=== PATIENT | female | born 1980 | race Caucasian/White ===

== ENCOUNTER 2021-02-16 10:17 | Outpatient (CLI) | payer OTHER, SELFPAY ==
[2021-02-16 11:32] LABS: Erythrocyte Sedimentation Rate 36 mm/hr (0-15)
[2021-02-16 12:04] LABS: Rheumatoid Factor Screen Negative (Negative)
[2021-02-16 12:08] LABS: CRP 1.5 mg/dL (0.0-0.9)
[2021-02-20 13:43] LABS: HLA B27 Negative (Negative)
== END 2021-02-16 10:18 | disposition home or self-care (01) ==
LOC: CHSLAB 10:20
PROVIDERS: PCP Family Medicine; Visit Provider Podiatrist Foot & Ankle Surgery
DX: M25.572 Pain in left ankle and joints of left foot (principal)
CPT/HCPCS: 36415; 84550; 85652; 86038; 86039; 86140; 86430; 86812

== ENCOUNTER 2021-02-18 11:50 | Outpatient (CLI) | payer OTHER, SELFPAY ==
--- NOTE | ~2021-02-18 | US_ITS ---
EXAMINATION: US arterial duplex LE DATE: 02/18/2021 13:47 INDICATION: Bilateral lower limb peripheral vascular disease. TECHNIQUE: Segmental pressures and plethysmographic and Doppler waveforms of the brachial and lower e xtremity arteries were obtained. COMPARISON: None. FINDINGS: Right and left brachial artery pressures of 160 mm Hg and 150 mm Hg, respectively, are concordant (no rmal difference <= 30 mmHg). The right and left high-thigh pressure indices are 1.28 and 1.28, respec tively (normal > 1.2). The right ankle-brachial index (JESÚS) is 1.0 (normal >= 0.9-1). The right great toe-brachial index (TB I) is 1.0 (normal >= 0.6-0.8). The right lower extremity segmental pressure gradients are normal (nor mal gradients <= 20-30 mmHg between adjacent levels on the same leg or the same levels on the two leg s). Arterial waveforms are monophasic at the right dorsalis pedis artery biphasic in the remaining ar teries of the left lower limb with brisk systolic upstrokes throughout. The left JESÚS is 1.1. The left second TBI is 0.8. The left great toe is unable to be accessed due to b andaging material about the great toe between ingrown toenail and blisters. The left lower extremity segmental pressure gradients are increased between the left dorsalis pedis artery and the left below- the-knee popliteal artery and left posterior tibial artery. Arterial waveforms are monophasic at the left dorsalis pedis artery and biphasic in the remaining arteries of the left lower limb with brisk s ystolic upstrokes throughout. IMPRESSION: 1. Normal JESÚS's and TBI's bilaterally. No significant occlusive disease. Reviewed, dictated and finalized at location A.
== END 2021-02-18 11:51 | disposition home or self-care (01) ==
LOC: CHSIMG 11:52
PROVIDERS: PCP Family Medicine; Visit Provider Podiatrist Foot & Ankle Surgery
DX: I73.9 Peripheral vascular disease, unspecified (principal)
CPT/HCPCS: 93925

== ENCOUNTER 2021-03-03 08:04 | Emergency (ER) | payer OTHER, SELFPAY ==
[2021-03-03 08:10] VITALS: BP 148/90; PULSE 124; RESP 20; TEMP 37.8; O2SAT 97
--- NOTE | 2021-03-03 08:47 | ED.FEVER ---
HPI - Fever General Chief Complaint: Fever Stated Complaint: FEVER ACHES Time Seen by Provider: 03/03/21 08:30 Source: patient Mode of arrival: ambulatory Limitations: no limitations History of Present Illness HPI Narrative: 40-year-old woman comes in today complaining of fever, body aches, fatigue for the last 3 days. She states the last time she checked her temperature is a 101.5?. Approximately 1 month ago she had a toenail reduction which subsequently became infected and she was placed on Septra after culture. She states her toe is painful and she is having a small amount of drainage. Patient denies dysuria, frequent urination, abdominal pain, nausea, vomiting, cough or cold symptoms, sore throat, recent sick exposures, chest pain, shortness of breath, or rash. MD elicited complaint: fever and malaise Onset (ago): day(s) (3) Measured temperature: 38.6 C Context: recent procedure Exacerbating factors: nothing Relieving factors: nothing Related Data Home Medications Medication Instructions Recorded Confirmed amlodipine 5 mg PO DAILY 03/03/21 03/03/21 sulfamethoxazole-trimethoprim 1 tablet PO BID 03/03/21 03/03/21 Allergies Allergy/AdvReac Type Severity Reaction Status Date / Time hydrocodone AdvReac Mild Nausea and Verified 09/12/18 12:35 Vomiting propoxyphene AdvReac Mild Nausea and Verified 09/12/18 12:35 Vomiting Review of Systems Constitutional: Constitutional: Reports fatigue and Reports fever(s) Eyes: Eyes: Denies change in vision and Denies photophobia ENT: Denies dysphagia, Denies nasal congestion and Denies sore throat Cardiovascular: Cardiovascular: Denies chest pain and Denies radiating jaw, neck or arm pain Respiratory: Respiratory: Denies cough, Denies dyspnea and Denies wheezing Gastrointestinal: Gastrointestinal: Denies abdominal pain, Denies diarrhea, Denies nausea and Denies vomiting Genitourinary: Genitourinary: Denies nocturia and Denies dysuria Musculoskeletal: Musculoskeletal: Reports as per HPI, Reports arthralgias and Denies joint swelling Integumentary/Breasts: Skin/Breast: Denies pruritus, Reports erythema and Denies rash Neurologic: Denies vertigo, Reports dizziness and Denies syncope Hematologic/Lymphatic: Hematologic/Lymphatic: Denies easy bleeding and Denies easy bruising Allergic/Immunologic: Allergic/Immunologic: Denies lip swelling and Denies throat swelling [facility] Past Medical History Medical History (Updated 03/03/21 @ 10:40 by Rafael Akins MD) Raynauds disease Social History Social History (Updated 03/03/21 @ 08:59 by Rafael Akins MD) Smoking status: Current every day smoker Substance use: never Living arrangements: with family Exam Const: General: healthy appearing and alert Orientation/consciousness: patient oriented x3 Other: Mild acute distress HENMT: Head: normal to inspection Ears: external ears normal, TM's normal bilaterally and EAC's normal General nose exam: Normal nares present Face and sinus: normal facial exam Mouth: Yes moist mucous membranes Throat: posterior oropharynx normal Eyes: Conjunctivae: conjunctivae normal Pupils: Equal, round and reactive pupils present EOM: EOMs intact bilaterally Resp: Effort & Inspection: normal respiratory effort and not labored Auscultation: clear to auscultation bilaterally, no rales, no rhonchi and no wheezes Cardio: Rate: regular rate Rhythm: regular rhythm Heart sounds: no murmurs Skin: General skin exam: normal color, no jaundice and no pallor Rashes: no rashes Neuro: General: patient oriented x3, moves all extremities, no focal motor deficits and CN's II-XI intact bilaterally Speech: normal speech Gait exam (Neuro): Normal gait present Extrem: General: normal to inspection and no clubbing, cyanosis or edema Other: Tenderness with palpation of the right great toe nail plate. Fibrinous material evident over approx 1/2 of the exposed nail bed without tendernes
[2021-03-03] MEDS: IBUPROFEN 600 MG TABLET PO (08:58)
[2021-03-03 09:18] VITALS: BP 138/76; PULSE 116; RESP 16; O2SAT 98
[2021-03-03 09:35] LABS: SARS-CoV-2 RNA PCR Negative (Negative)
[2021-03-03 10:05] LABS: Hematocrit 39.4 % (35.0-49.0); Hemoglobin 13.5 g/dL (12.0-15.0); Mean Corpuscular HGB Conc 34.3 g/dL (32.0-36.0); Mean Corpuscular Hemoglobin 30.1 pg (27.0-31.0); Mean Corpuscular Volume 87.9 fL (78.0-102.0); Mean Platelet Volume 9.4 fl (9.2-11.8); Platelet Count Result 123 K/mm3 (150-420); Red Blood Count 4.48 M/mm3 (4.20-5.40); Red Cell Distribution Width 12.7 % (11.6-14.4); White Blood Count 3.1 K/mm3 (4.8-10.8)
[2021-03-03 10:09] LABS: Appearance Urine Sl Cloudy (Clear); Bilirubin Urine 1+ (Negative); Color Urine Yellow (Yellow); Glucose Urine UA Negative (Negative); Ketones Urine 1+ (Negative); Leukocyte Esterase Ur Negative (Negative); Nitrate Urine Negative (Negative); Protein Urine 2+ (Negative); Specific Grav Ur >= 1.030 (1.010-1.020)
[2021-03-03 10:16] LABS: Add Urine Microscopic? YES; Blood Urine Trace-Intact (Negative)
[2021-03-03 10:17] LABS: Bacteria Urine 4+ /hpf; Squamous Epithelial Cell Urine Many /hpf (Few); WBC Urine 0-3 /hpf (0-3)
[2021-03-03 10:21] LABS: Alanine Aminotransferase 26 U/L (14-59); Albumin Level 3.3 g/dL (3.4-5.0); Alkaline Phosphatase 54 U/L (46-116); Anion Gap 11 mmol/L (8-16); Aspartate Amino Transferase 19 U/L (15-37); Bilirubin,Total 0.4 mg/dL (0.00-1.00); Blood Urea Nitrogen 21 mg/dL (7-18); CRP 10.7 mg/dL (0.0-0.9); Calcium 8.4 mg/dL (8.5-10.1); Carbon Dioxide 24 mmol/L (21-32); Chloride 99 mmol/L (98-108); Estimated Glomerular Filt Rate 46; Glucose 88 mg/dL (70-99); Osmolality Calculated 280 mOsm/kg (285-295); Potassium 3.6 mmol/L (3.5-5.1); Sodium 134 mmol/L (136-145); Total Protein 7.4 g/dL (6.4-8.2)
[2021-03-03 10:24] LABS: Lactic Acid Reflex 0.8 mmol/L (0.4-2.0)
[2021-03-03 10:33] LABS: Band Neutrophils Percent 4 % (0-6); Basophils Percent Manual 0 % (0-1); Eosinophils Absolute Manual 0.15 K/mm3 (0.02-0.5); Eosinophils Percent Manual 5 % (1-6); Lymphocytes Absolute Manual 0.21 K/mm3 (1.1-4.5); Lymphocytes Percent Manual 7 % (18-44); Monocytes Absolute Manual 0.21 K/mm3 (0.1-0.90); Monocytes Percent Manual 7 % (3-9); Neutrophils Absolute Manual 2.51 K/mm3 (1.7-7.2); Neutrophils Percent Manual 77 % (46-73); Platelet Estimate Adequate (Adequate); Total Cells Counted 100
[2021-03-03 10:47] VITALS: RESP 17
== END 2021-03-03 10:48 | disposition home or self-care (01) ==
PROVIDERS: Emergency Provider Emergency Medicine; PCP Family Medicine
DX: E86.0 Dehydration (principal); R50.9 Fever, unspecified; Z20.822 Contact with and (suspected) exposure to COVID-19
CPT/HCPCS: 36415; 80053; 81001; 83605; 85025; 86140; 87040; 87086; 99283; A9270; C9803; U0003; U0005

== ENCOUNTER 2021-04-28 10:40 | Outpatient (CLI) | payer OTHER, SELFPAY ==
[2021-04-28 12:07] LABS: Alanine Aminotransferase 28 U/L (14-59); Albumin Level 3.6 g/dL (3.4-5.0); Alkaline Phosphatase 51 U/L (46-116); Aspartate Amino Transferase 27 U/L (15-37); Bilirubin Direct 0.1 mg/dL (0-0.2); Bilirubin,Total 0.4 mg/dL (0.00-1.00); Total Protein 7.3 g/dL (6.4-8.2)
== END 2021-04-28 10:41 | disposition home or self-care (01) ==
LOC: CHSLAB 10:43
PROVIDERS: PCP Family Medicine; Visit Provider Podiatrist Foot & Ankle Surgery
DX: B35.1 Tinea unguium (principal)
CPT/HCPCS: 36415; 80076

== ENCOUNTER 2021-08-19 08:30 | Outpatient (RCR) | payer OTHER, SELFPAY ==
[2021-08-19 09:06] LABS: Basophils Absolute Auto 0.05 K/mm3 (0.00-0.10); Basophils Percent Auto 0.7 % (0.0-1.0); Eosinophils Absolute Auto 0.12 K/mm3 (0.02-0.50); Eosinophils Percent Auto 1.6 % (1.0-6.0); Hematocrit 39.9 % (35.0-49.0); Hemoglobin 13.5 g/dL (12.0-15.0); Immature Granulocyte Absolute 0.02 K/mm3 (0.00-0.00); Immature Granulocyte Percent A 0.3 % (0.0-0.0); Lymphocytes Absolute Auto 1.35 K/mm3 (1.10-4.50); Lymphocytes Percent Auto 18.5 % (18.0-42.0); Mean Corpuscular HGB Conc 33.8 g/dL (32.0-36.0); Mean Corpuscular Hemoglobin 29.7 pg (27.0-31.0); Mean Corpuscular Volume 87.7 fL (78.0-102.0); Mean Platelet Volume 9.1 fl (9.2-11.8); Monocytes Absolute Auto 0.33 K/mm3 (0.10-0.90); Monocytes Percent Auto 4.5 % (2.0-11.0); Neutrophils Absolute Auto 5.4 K/mm3 (1.7-7.2); Neutrophils Percent Auto 74.4 % (50.0-70.0); Platelet Count Result 218 K/mm3 (150-420); Red Blood Count 4.55 M/mm3 (4.20-5.40); Red Cell Distribution Width 11.8 % (11.6-14.4); White Blood Count 7.3 K/mm3 (4.8-10.8)
--- NOTE | 2021-08-19 09:19 | PC.NURSE ---
Patient here today for Picc line dressing change. Single lumen Picc line in right upper arm. No s/s of infection. No bruising noted. Patient brought in all supplies for the dressing change and flushes. Flushed PICC line with 10cc NS. Line flushes with ease. Withdrew 10cc of blood to dispose of. Then robb 10cc blood for lab sample. Line then flushed with 10cc NS and 5cc Heparin. Removed old Picc line dressing. Using sterile technique new dressing applied. Patient tolerated well. Denies any discomfort. Education provide to patient on s/s of infection and when to call MD. Patient verbalized understanding. Patient safely ambulated independently from OP treatment room. --Angela Ceja RN
[2021-08-19 09:22] LABS: Anion Gap 10 mmol/L (8-16); Blood Urea Nitrogen 14 mg/dL (7-18); Calcium 8.5 mg/dL (8.5-10.1); Carbon Dioxide 28 mmol/L (21-32); Chloride 103 mmol/L (98-108); Estimated Glomerular Filt Rate 55; Glucose 93 mg/dL (70-99); Osmolality Calculated 292 mOsm/kg (285-295); Potassium 4.1 mmol/L (3.5-5.1); Sodium 141 mmol/L (136-145)
[2021-08-19 10:08] LABS: Erythrocyte Sedimentation Rate 34 mm/hr (0-15)
== END 2021-11-17 23:59 | disposition home or self-care (01) ==
LOC: CHSLAB 08:30
PROVIDERS: PCP Family Medicine; Visit Provider Internal Medicine Infectious Disease
DX: M86.172 Other acute osteomyelitis, left ankle and foot (principal)
CPT/HCPCS: 36415; 80048; 85025; 85652

== ENCOUNTER 2021-08-26 08:41 | Outpatient (CLI) | payer OTHER, SELFPAY ==
--- NOTE | 2021-08-26 09:31 | PC.NURSE ---
Patient here today for PICC line dressing change and labwork. Flushed PICC line with 10 cc NS. Then pulled 10cc of discard sample. Obtained 10cc blood for labwork. Flushed Picc line with 10cc NS and 5 cc Heparin. PICC line flushes with ease. Patient denies any discomfort. Assessed Picc line, No s/s of infection noted. Educated patient on s/s of infection and when to call her PCP. PICC line dressing changed using sterile technique. Patient tolerated well. Patient safely ambulated from OP treatment room. Patient will follow up next week for PICC line dressing change. Patient provided all supplies and flushes. --Angela Ceja RN
[2021-08-26 09:46] LABS: Basophils Absolute Auto 0.05 K/mm3 (0.00-0.10); Basophils Percent Auto 0.8 % (0.0-1.0); Eosinophils Absolute Auto 0.13 K/mm3 (0.02-0.50); Hematocrit 38.8 % (35.0-49.0); Hemoglobin 13.2 g/dL (12.0-15.0); Immature Granulocyte Absolute 0.02 K/mm3 (0.00-0.00); Immature Granulocyte Percent A 0.3 % (0.0-0.0); Lymphocytes Absolute Auto 1.32 K/mm3 (1.10-4.50); Lymphocytes Percent Auto 20.7 % (18.0-42.0); Mean Corpuscular Hemoglobin 29.7 pg (27.0-31.0); Mean Corpuscular Volume 87.2 fL (78.0-102.0); Mean Platelet Volume 10.1 fl (9.2-11.8); Monocytes Absolute Auto 0.33 K/mm3 (0.10-0.90); Monocytes Percent Auto 5.2 % (2.0-11.0); Neutrophils Absolute Auto 4.5 K/mm3 (1.7-7.2); Platelet Count Result 206 K/mm3 (150-420); Red Blood Count 4.45 M/mm3 (4.20-5.40); Red Cell Distribution Width 11.5 % (11.6-14.4); White Blood Count 6.4 K/mm3 (4.8-10.8)
[2021-08-26 09:56] LABS: Anion Gap 9 mmol/L (8-16); Blood Urea Nitrogen 17 mg/dL (7-18); Calcium 8.4 mg/dL (8.5-10.1); Carbon Dioxide 27 mmol/L (21-32); Chloride 105 mmol/L (98-108); Estimated Glomerular Filt Rate 58; Glucose 95 mg/dL (70-99); Osmolality Calculated 293 mOsm/kg (285-295); Sodium 141 mmol/L (136-145)
[2021-08-26 10:49] LABS: Erythrocyte Sedimentation Rate 33 mm/hr (0-15)
== END 2021-08-26 08:42 | disposition home or self-care (01) ==
LOC: CHSTREATRM 08:45
PROVIDERS: PCP Family Medicine; Visit Provider Internal Medicine Infectious Disease
DX: M86.172 Other acute osteomyelitis, left ankle and foot (principal)
CPT/HCPCS: 36415; 80048; 85025; 85652; 99211; G0463

== ENCOUNTER 2021-09-02 08:41 | Outpatient (CLI) | payer OTHER, SELFPAY ==
--- NOTE | 2021-09-02 09:19 | PC.NURSE ---
Patient here today for PICC line dressing change and labwork. PICC line flushes with ease, flushed with 10cc NS. 10cc of blood drawn and discarded. 10cc blood sample obtained. Flushed PICC line with 10cc NS and 5cc Heparin flush. Patient tolerated well. PICC line dressing change performed using sterile technique. Patient tolerated well. Assessed PICC line for s/s of infection, No s/s of infection noted. Educated patient on s/s of infection and when to call the physician. Patient brought in all supplies used today. Patient safely ambulated from the OP treatment room. --Angela Ceja RN
[2021-09-02 09:23] LABS: Basophils Absolute Auto 0.06 K/mm3 (0.00-0.10); Eosinophils Absolute Auto 0.13 K/mm3 (0.02-0.50); Eosinophils Percent Auto 2.1 % (1.0-6.0); Hematocrit 38.7 % (35.0-49.0); Hemoglobin 13.2 g/dL (12.0-15.0); Immature Granulocyte Absolute 0.02 K/mm3 (0.00-0.00); Immature Granulocyte Percent A 0.3 % (0.0-0.0); Lymphocytes Percent Auto 20.6 % (18.0-42.0); Mean Corpuscular HGB Conc 34.1 g/dL (32.0-36.0); Mean Corpuscular Hemoglobin 29.8 pg (27.0-31.0); Mean Corpuscular Volume 87.4 fL (78.0-102.0); Mean Platelet Volume 9.4 fl (9.2-11.8); Monocytes Absolute Auto 0.32 K/mm3 (0.10-0.90); Monocytes Percent Auto 5.1 % (2.0-11.0); Neutrophils Absolute Auto 4.5 K/mm3 (1.7-7.2); Neutrophils Percent Auto 70.9 % (50.0-70.0); Platelet Count Result 214 K/mm3 (150-420); Red Blood Count 4.43 M/mm3 (4.20-5.40); Red Cell Distribution Width 11.2 % (11.6-14.4); White Blood Count 6.3 K/mm3 (4.8-10.8)
[2021-09-02 09:37] LABS: Anion Gap 10 mmol/L (8-16); Blood Urea Nitrogen 18 mg/dL (7-18); Calcium 8.9 mg/dL (8.5-10.1); Carbon Dioxide 24 mmol/L (21-32); Chloride 103 mmol/L (98-108); Estimated Glomerular Filt Rate 54; Glucose 101 mg/dL (70-99); Osmolality Calculated 285 mOsm/kg (285-295); Potassium 3.9 mmol/L (3.5-5.1); Sodium 137 mmol/L (136-145)
[2021-09-02 10:27] LABS: Erythrocyte Sedimentation Rate 32 mm/hr (0-15)
== END 2021-09-02 08:42 | disposition home or self-care (01) ==
LOC: CHSTREATRM 08:44
PROVIDERS: PCP Family Medicine; Visit Provider Internal Medicine Infectious Disease
DX: M86.172 Other acute osteomyelitis, left ankle and foot (principal)
CPT/HCPCS: 36415; 80048; 85025; 85652; 99211; G0463

== ENCOUNTER 2021-09-09 08:46 | Outpatient (CLI) | payer OTHER, SELFPAY ==
--- NOTE | 2021-09-09 09:16 | PC.NURSE ---
Patient here for Labwork and PICC line dressing change. Flushed single lumen picc line with 10cc NS. Line flushes with ease. Obtained 10cc discard blood sample. Obtained 10cc of blood for labwork. Flushed Picc line with 10cc NS then 5cc Heparin. Patient tolerated well. Denies any discomfort. Picc line dressing change performed using sterile technique. No s/s of infection noted. Patient tolerated dressing change well. Educated patient on s/s of infection and when to call MD. Patient verbalized understanding. Patient brought all supplies for dressing change and lab draw. Patient safely, independently ambulated from OP treatment. --Bayron SAUER
[2021-09-09 09:33] LABS: Basophils Absolute Auto 0.07 K/mm3 (0.00-0.10); Basophils Percent Auto 0.7 % (0.0-1.0); Eosinophils Absolute Auto 0.17 K/mm3 (0.02-0.50); Eosinophils Percent Auto 1.8 % (1.0-6.0); Hematocrit 38.6 % (35.0-49.0); Hemoglobin 12.8 g/dL (12.0-15.0); Immature Granulocyte Absolute 0.04 K/mm3 (0.00-0.00); Immature Granulocyte Percent A 0.4 % (0.0-0.0); Lymphocytes Percent Auto 23.5 % (18.0-42.0); Mean Corpuscular HGB Conc 33.2 g/dL (32.0-36.0); Mean Corpuscular Hemoglobin 29.1 pg (27.0-31.0); Mean Corpuscular Volume 87.7 fL (78.0-102.0); Mean Platelet Volume 9.5 fl (9.2-11.8); Monocytes Absolute Auto 0.54 K/mm3 (0.10-0.90); Monocytes Percent Auto 5.8 % (2.0-11.0); Neutrophils Absolute Auto 6.3 K/mm3 (1.7-7.2); Neutrophils Percent Auto 67.8 % (50.0-70.0); Platelet Count Result 356 K/mm3 (150-420); Red Cell Distribution Width 11.1 % (11.6-14.4); White Blood Count 9.4 K/mm3 (4.8-10.8)
[2021-09-09 09:43] LABS: Anion Gap 10 mmol/L (8-16); Blood Urea Nitrogen 16 mg/dL (7-18); Calcium 8.6 mg/dL (8.5-10.1); Carbon Dioxide 27 mmol/L (21-32); Chloride 102 mmol/L (98-108); Estimated Glomerular Filt Rate > 60; Glucose 97 mg/dL (70-99); Osmolality Calculated 289 mOsm/kg (285-295); Potassium 3.7 mmol/L (3.5-5.1); Sodium 139 mmol/L (136-145)
[2021-09-09 10:41] LABS: Erythrocyte Sedimentation Rate 26 mm/hr (0-15)
== END 2021-09-09 08:47 | disposition home or self-care (01) ==
LOC: CHSTREATRM 08:48
PROVIDERS: PCP Family Medicine; Visit Provider Internal Medicine Infectious Disease
DX: M86.172 Other acute osteomyelitis, left ankle and foot (principal)
CPT/HCPCS: 36415; 80048; 85025; 85652; 99211; G0463

== ENCOUNTER 2021-09-16 10:44 | Outpatient (CLI) | payer OTHER, SELFPAY ==
[2021-09-16 11:11] LABS: Basophils Absolute Auto 0.08 K/mm3 (0.00-0.10); Basophils Percent Auto 0.7 % (0.0-1.0); Eosinophils Absolute Auto 0.17 K/mm3 (0.02-0.50); Eosinophils Percent Auto 1.6 % (1.0-6.0); Hematocrit 39.9 % (35.0-49.0); Hemoglobin 13.5 g/dL (12.0-15.0); Immature Granulocyte Absolute 0.06 K/mm3 (0.00-0.00); Immature Granulocyte Percent A 0.6 % (0.0-0.0); Lymphocytes Absolute Auto 1.62 K/mm3 (1.10-4.50); Lymphocytes Percent Auto 15.1 % (18.0-42.0); Mean Corpuscular HGB Conc 33.8 g/dL (32.0-36.0); Mean Corpuscular Hemoglobin 29.2 pg (27.0-31.0); Mean Corpuscular Volume 86.4 fL (78.0-102.0); Monocytes Absolute Auto 0.38 K/mm3 (0.10-0.90); Monocytes Percent Auto 3.5 % (2.0-11.0); Neutrophils Absolute Auto 8.4 K/mm3 (1.7-7.2); Neutrophils Percent Auto 78.5 % (50.0-70.0); Platelet Count Result 343 K/mm3 (150-420); Red Blood Count 4.62 M/mm3 (4.20-5.40); Red Cell Distribution Width 11.3 % (11.6-14.4); White Blood Count 10.7 K/mm3 (4.8-10.8)
--- NOTE | 2021-09-16 11:13 | PC.NURSE ---
Patient here for labwork and PICC line dressing change. Patient brought in all supplies. Flushed PICC line with 10cc NS. Line flushed with ease. Obtained 10cc discard blood sample then obtained 10cc blood sample for labwork. Flushed PICC line after blood draw with 10cc NS and then 5 cc Heparin. PICC line dressing change performed using sterile technique. No s/s of infection noted at insertion site. Patient denies any discomfort from the line. Patient tolerated all procedures well. Patient safely ambulated from OP treatment room independently. Patient will follow up next week for labwork and PICC line dressing change. --Bayron SAUER
[2021-09-16 11:21] LABS: Anion Gap 10 mmol/L (8-16); Blood Urea Nitrogen 16 mg/dL (7-18); Calcium 8.4 mg/dL (8.5-10.1); Carbon Dioxide 27 mmol/L (21-32); Chloride 103 mmol/L (98-108); Estimated Glomerular Filt Rate 59; Glucose 96 mg/dL (70-99); Osmolality Calculated 291 mOsm/kg (285-295); Potassium 3.7 mmol/L (3.5-5.1); Sodium 140 mmol/L (136-145)
[2021-09-16 12:14] LABS: Erythrocyte Sedimentation Rate 20 mm/hr (0-15)
== END 2021-09-16 10:45 | disposition home or self-care (01) ==
LOC: CHSTREATRM 10:46
PROVIDERS: PCP Family Medicine; Visit Provider Internal Medicine Infectious Disease
DX: M86.172 Other acute osteomyelitis, left ankle and foot (principal)
CPT/HCPCS: 36415; 80048; 85025; 85652; 99211; G0463

== ENCOUNTER 2021-09-23 09:19 | Outpatient (CLI) | payer OTHER, SELFPAY ==
--- NOTE | 2021-09-23 10:02 | PC.NURSE ---
Patient here for labwork and PICC line dressing change. Flushed PICC line with 100 cc NS. PICC line flushed with ease. Obtained 10cc discard blood sample. Then obtained 10cc blood sample for labwork. Flushed with 10cc NS then 5cc Heparin. Patient tolerated well. Denies any discomfort. Changed PICC line dressing using sterile technique. Patient tolerated well. No s/s of infection noted. Reviewed with patient s/s of infection and when to call her MD. Patient verbalized understanding. Patient brought in all supplies used for the labwork and dressing change today. Patient safely ambulated independently from OP treatment room. Patient will follow up next week. Per patient, PICC line is scheduled to be pulled next week. Will verify with physician prior to pulling the line. --Bayron SAUER
[2021-09-23 11:01] LABS: Basophils Absolute Auto 0.07 K/mm3 (0.00-0.10); Basophils Percent Auto 0.9 % (0.0-1.0); Eosinophils Percent Auto 5.3 % (1.0-6.0); Hematocrit 37.9 % (35.0-49.0); Hemoglobin 13.5 g/dL (12.0-15.0); Immature Granulocyte Absolute 0.02 K/mm3 (0.00-0.00); Immature Granulocyte Percent A 0.3 % (0.0-0.0); Lymphocytes Absolute Auto 1.38 K/mm3 (1.10-4.50); Lymphocytes Percent Auto 18.3 % (18.0-42.0); Mean Corpuscular HGB Conc 35.6 g/dL (32.0-36.0); Mean Corpuscular Hemoglobin 29.8 pg (27.0-31.0); Mean Corpuscular Volume 83.7 fL (78.0-102.0); Mean Platelet Volume 10.6 fl (9.2-11.8); Monocytes Absolute Auto 0.38 K/mm3 (0.10-0.90); Neutrophils Absolute Auto 5.3 K/mm3 (1.7-7.2); Neutrophils Percent Auto 70.2 % (50.0-70.0); Platelet Count Result 287 K/mm3 (150-420); Red Blood Count 4.53 M/mm3 (4.20-5.40); Red Cell Distribution Width 11.9 % (11.6-14.4); White Blood Count 7.5 K/mm3 (4.8-10.8)
[2021-09-23 11:11] LABS: Anion Gap 10 mmol/L (8-16); Blood Urea Nitrogen 22 mg/dL (7-18); Calcium 8.5 mg/dL (8.5-10.1); Carbon Dioxide 24 mmol/L (21-32); Chloride 104 mmol/L (98-108); Estimated Glomerular Filt Rate 54; Glucose 98 mg/dL (70-99); Osmolality Calculated 289 mOsm/kg (285-295); Sodium 138 mmol/L (136-145)
[2021-09-23 12:08] LABS: Erythrocyte Sedimentation Rate 20 mm/hr (0-15)
== END 2021-09-23 09:20 | disposition home or self-care (01) ==
LOC: CHSTREATRM 09:20
PROVIDERS: PCP Family Medicine; Visit Provider Internal Medicine Infectious Disease
DX: M86.172 Other acute osteomyelitis, left ankle and foot (principal)
CPT/HCPCS: 36415; 80048; 85025; 85652; 99211; G0463

== ENCOUNTER 2021-10-02 10:25 | Outpatient (CLI) | payer OTHER, SELFPAY ==
--- NOTE | 2021-10-02 10:46 | PC.NURSE ---
Patient here for Picc line removal. Patient had Picc line in right ac and was given self IV ABX at home. Course of her ABX over. Order received from ICD to remove Picc line. Picc line removed-tip of catheter intact. Site asystomatic of s/sx of injection. Pressure dressing applied. Education on s/sx to look for at site from here. Safe exit of hospital.
== END 2021-10-02 10:26 | disposition home or self-care (01) ==
LOC: CHSTREATRM 10:27
PROVIDERS: PCP Family Medicine; Visit Provider Internal Medicine Infectious Disease
DX: M86.172 Other acute osteomyelitis, left ankle and foot (principal)
CPT/HCPCS: 99211; G0463

== ENCOUNTER 2023-12-21 18:36 | Inpatient (IN) | payer BC, OTHER, SELFPAY ==
--- NOTE | ~2023-12-21 | XR_ITS ---
EXAMINATION: XR chest 2V DATE: 12/21/2023 19:10 INDICATION: Chest pain TECHNIQUE: Frontal and lateral views of the chest are obtained COMPARISON: None available FINDINGS: The lungs are free of acute opacities. No pleural effusion or pneumothorax. The cardiomedia stinal silhouette is normal. The visualized bones and soft tissues are unremarkable. IMPRESSION: 1. No acute cardiopulmonary abnormality. Reviewed, dictated and finalized at location F. FORMER
--- NOTE | 2023-12-21 18:37 | ECG_ITS ---
Measurements Intervals [place] Rate: 73 P: 54 TN: 154 QRS: 3 QRSD: 83 T: -6 QT: 374 QTc: 413 Interpretive Statements SINUS RHYTHM NONSPECIFIC T-WAVE ABNORMALITY NO PREVIOUS ECG AVAILABLE FOR COMPARISON Electronically Signed On 12-22-2023 15:37:34 BANKING SUPERVISOR by Patrica Lala M.D.
[2023-12-21 18:51] VITALS: BP 162/85; PULSE 68; RESP 18; TEMP 36.4; O2SAT 100
[2023-12-21 18:55] LABS: Basophils Percent Auto 0.6 % (0.2-1.2); Eosinophils Absolute Auto 0.2 K/mm3 (0-0.3); Eosinophils Percent Auto 2.7 % (0-4.4); Hematocrit 42.7 % (37.0-47.0); Hemoglobin 14.1 g/dL (12.0-15.0); Immature Granulocyte Absolute 0.02 K/mm3 (0.00-0.031); Immature Granulocyte Percent A 0.3 % (0-0.5); Lymphocytes Absolute Auto 1.93 K/mm3 (0.9-3.2); Mean Corpuscular Hemoglobin 29.7 pg (26-34); Mean Corpuscular Volume 90.1 fl (80-100); Mean Platelet Volume 9.4 fl (7.4-10.4); Monocytes Absolute Auto 0.4 K/mm3 (0.1-0.6); Monocytes Percent Auto 6.6 % (2.6-8.5); Neutrophils Absolute Auto 3.7 K/mm3 (1.3-6.7); Neutrophils Percent Auto 58.8 % (45.5-73.1); Platelet Count Result 203 k/mm3 (150-375); Red Blood Count 4.74 M/mm3 (4.2-5.4); Red Cell Distribution Width 12.2 % (11.5-14.5); White Blood Count 6.2 K/mm3 (4.5-10.0)
[2023-12-21 19:06] LABS: INR 0.9; Partial Thromboplastin Time 31.1 SECONDS (22.3-36.8); Prothrombin Time 12.6 Seconds (11.1-14.7)
[2023-12-21 19:07] LABS: Alanine Aminotransferase 21 U/L (6-35); Alkaline Phosphatase 62 U/L (38-126); Anion Gap 5 mmol/L (8-16); Aspartate Amino Transferase 25 U/L (14-36); Bilirubin,Total 0.5 mg/dL (0.2-1.3); Blood Urea Nitrogen 18 mg/dL (7-17); Calcium 9.2 mg/dL (8.4-10.2); Carbon Dioxide 28 mmol/L (22-30); Chloride 105 mmol/L (98-107); Estimated CRCL calculation 54 ml/min; Estimated Glomerular Filt Rate 55; Glucose 124 mg/dL (65-110); Lipase 202 U/L (23-300); Potassium 4.1 mmol/L (3.4-5.0); Sodium 138 mmol/L (137-145)
[2023-12-21 19:18] LABS: Troponin I 0.017 ng/mL (0.000-0.034)
[2023-12-21 20:00] VITALS: BP 166/88; PULSE 76; RESP 16; O2SAT 100
[2023-12-21 20:16] VITALS: O2SAT 100
[2023-12-21 20:17] VITALS: PULSE 72
--- NOTE | 2023-12-21 20:21 | ED.CHESTPAIN ---
HPI - Chest Pain General Chief Complaint: Chest Pain Stated Complaint: chest pain Time Seen by Provider: 12/21/23 20:09 Source: patient Mode of arrival: ambulatory Limitations: no limitations History of Present Illness HPI narrative: 43-year-old female experienced acute onset chest pain approximately 5:[address]. Her symptoms lasted for approximately 40 minutes, including 30 minutes into her emergency department visit but that resolved and has not recurred. She states at that time it radiated to her left arm and left neck, 4/10 in severity, occurring intermittently. She has not yet taken anything for pain. No shortness of breath/nausea/vomiting. She notes she forgot to take her morning BP med. Smokes 2 cigarettes/day + vapes. Patient states she had a heart attack in February of 2022 and underwent a cardiac catheterization by Dr. Barragan of [facility]. She states she was told she had no blockages and that no stents were placed but that she was having a stress RI in my maker. 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 She continues to follow with a computer help desk representative through [facility] though can't recall name. No lower extremity edema. Denies diagnosis of diabetes or hypercholesterolemia. States her grandfather at the age of 62 due to a heart attack. Related Data Home Medications Medication Instructions Recorded Confirmed amlodipine 5 mg tablet 5 mg PO DAILY 03/03/21 03/03/21 sulfamethoxazole 800 1 tablet PO BID 03/03/21 03/03/21 mg-trimethoprim 160 mg tablet Allergies Allergy/AdvReac Type Severity Reaction Status Date / Time hydrocodone AdvReac Mild Nausea and Verified 09/12/18 12:35 Vomiting propoxyphene AdvReac Mild Nausea and Verified 09/12/18 12:35 Vomiting [facility] Past Medical History Medical History (Updated 12/21/23 @ 23:15 by Johnna Garcia MD) Hypertension Myocardial infarction 02/2022 per pt; details unclear Raynauds disease Surgical History Surgical History (Updated 12/21/23 @ 23:08 by Johnna Garcia MD) History of cardiac catheterization 02/2022 per patient (Dr Barragan, [facility]), without blockage Peripheral vascular angioplasty status with implants and grafts angioplasty in L leg x2 in early 2021 per patient with stent(s) Family History Family History (Updated 12/21/23 @ 23:16 by Johnna Garcia MD) Grandparent , at age 62 Acute myocardial infarction, Onset Age: 62 Social History Social History (Updated 12/21/23 @ 23:18 by Johnna Garcia MD) Smoking status: Current every day smoker Tobacco type: e-cigarettes/vaping Substance use: never Living arrangements: with family Additional living arrangements comments: 5yo son Exam Narrative: GENERAL: Well-appearing, well-nourished, and in no acute distress. HEAD: Normocephalic, atraumatic. EYES: Non injected, non icteric ENT: Nares clear, no rhinorrhea or epistaxis. NECK: Supple. CHEST: Clear to auscultation without wheezes/crackles. No respiratory distress. HEART: Regular rate and rhythm. ABDOMEN: Soft, nondistended. EXTREMITIES: Normal range of motion. No lower extremity edema. SKIN: Warm, dry, no rash. NEURO: No focal deficits. Alert and oriented x3. PSYCH: Normal mood and affect. Course Vital Signs Vital signs: Vital Signs Temperature 97.6 F 12/21/23 18:51 Pulse Rate 68 12/21/23 18:51 Respiratory Rate 18 12/21/23 18:51 Blood Pressure 162/85 H 12/21/23 18:51 Pulse Oximetry 100 12/21/23 18:51 Oxygen Delivery Room Air 12/21/23 18:51 Temperature 97.6 F 12/21/23 18:51 Pulse Rate 70 12/21/23 23:33 Respiratory Rate 16 12/21/23 23:33 Blood Pressure 155/67 H 12/21/23 23:33 Pulse Oximetry 100 12/21/23 23:33 Oxygen Delivery Room Air 12/21/23 20:16 MDM - Chest Pain MDM Narrative Medical decision making narrative: Patient reports with acute onset chest pain while driving. Patient's chest pain l
[2023-12-21] MEDS: ASPIRIN 81 MG CHEWABLE TABLET 324 MG PO (20:35)
--- NOTE | 2023-12-21 21:15 | ECG_ITS ---
Measurements Intervals [place] Rate: 68 P: 47 CO: 158 QRS: -2 QRSD: 82 T: -4 QT: 391 QTc: 417 Interpretive Statements SINUS RHYTHM NONSPECIFIC T-WAVE ABNORMALITY COMPARED TO ECG 12/21/2023 18:41:44 NO SIGNIFICANT CHANGES Electronically Signed On 12-22-2023 15:39:40 LOW VOLTAGE TECHNICIAN by Patrica Lala M.D.
[2023-12-21 22:23] VITALS: BP 155/71; PULSE 74; RESP 16; O2SAT 100
[2023-12-21 22:37] LABS: Troponin I 0.896 ng/mL (0.000-0.034)
[2023-12-21] MEDS: HEPARIN SODIUM 5,000 UNITS/ML VIAL 3500 UNITS IV PUSH (23:07)
[2023-12-21] MEDS: HEPARIN SOD/D5W 100 UNITS/ML 25,000 UNITS/250 ML BAG 7 UNITS IV CONT (23:08)
[2023-12-21 23:33] VITALS: BP 155/67; PULSE 70; RESP 16; O2SAT 100
[2023-12-21] MEDS: LACTATED RINGERS 1,000 ML 125 ML IV CONT (23:56)
[2023-12-22] VITALS (23 sets, daily range): BP systolic 118–172; BP diastolic 47–97; PULSE 70–90; RESP 13–24; TEMP 36.6–36.8; O2SAT 96–100; BMI 27.5; BMI 27.6
--- NOTE | 2023-12-22 | ECHO_ITS ---
Patient Info Name: Azul Hopkins Age: 43 years : 1980 Gender: Female Ht: 65 in Wt: 166 lbs BSA: 1.88 m2 HR: 78 bpm BP: 131 / 71 mmHg Heart Rhythm: Sinus Rhythm Technical Quality: Good Exam Date: 12/22/2023 2:38 PM Exam Location: Echo Lab Patient Status: Inpatient Admit Date: 12/22/2023 Staff Ordering Physician: Patrica Lala MD (augusto/lucila) Upholstery Instructor: Attending Provider: Mary Kay Carlisle DO Referring Physician: Spike BECK; Exam Type: CA echo doppler color flow Study Info Indications R07.9 - Chest pain, unspecified Complete two-dimensional, color flow and Doppler transthoracic echocardiogram is performed. Summary 1. Complete two-dimensional, color flow and Doppler transthoracic echocardiogram is performed. 2. Left ventricular chamber dimension is normal. 3. Left ventricular systolic function is normal, estimated at 55-60%. 4. There is moderately increased left ventricular wall thickness. 5. Regional wall motion abnormalities consistent with Takotsubo cardiomyopathy. 6. The left ventricular diastolic function is grade I diastolic dysfunction. 7. Right ventricular systolic function is normal. 8. There is moderate aortic valve stenosis with a peak velocity of 309 cm/s, mean gradient of 20 mmHg, and aortic valve area of 1.3 cm2. 9. There is mild aortic valve regurgitation. 10. There is mild mitral valve regurgitation. Left Ventricle Regional wall motion abnormalities consistent with Takotsubo cardiomyopathy. Left ventricular chamber dimension is normal. Left ventricular systolic function is normal, estimated at 55-60%. There is moderately increased left ventricular wall thickness. The left ventricular diastolic function is grade I diastolic dysfunction. Right Ventricle Right ventricular chamber dimension is normal. Right ventricular systolic function is normal. Left Atria Left atrial chamber dimension is normal. Right Atria Right atrial chamber dimension is normal. Atrial Septum Intact interatrial septum visualized by color flow imaging. Aortic Valve The aortic valve is not well visualized. There is moderate aortic valve stenosis with a peak velocity of 309 cm/s, mean gradient of 20 mmHg, and aortic valve area of 1.3 cm2. There is mild aortic valve regurgitation. Pulmonic Valve The pulmonic valve is not well visualized. Mitral Valve There is mild mitral valve regurgitation. Tricuspid Valve There is trace tricuspid valve regurgitation. Pericardium/Pleural There is no pericardial effusion. Inferior Vena Cava Normal inferior vena cava with >50% collapse upon inspiration consistent with normal right atrial pressure, 3 mmHg. Aorta The aortic root size at the sinus of Valsalva is normal. Left Ventricular Outflow Tract Name Value Normal LVOT 2D LVOT Diameter 2.0 cm LVOT Doppler LVOT Peak Gradient 4 mmHg LVOT Mean Gradient 3 mmHg LVOT VTI 26 cm LVOT VTI/AV VTI Ratio 0.4 LVOT Stroke Volume 78 ml LVOT CO 6.6 l/min LVOT CI 3.5 l/min/m2 Pulmonic
[2023-12-22 00:36] LABS: Prothrombin Time 13.3 Seconds (11.1-14.7)
--- NOTE | 2023-12-22 00:39 | ECG_ITS ---
Measurements Intervals [place] Rate: 70 P: 56 IL: 160 QRS: 19 QRSD: 87 T: 168 QT: 413 QTc: 446 Interpretive Statements SINUS RHYTHM MODERATE T-WAVE ABNORMALITY, CONSIDER LATERAL ISCHEMIA [-0.1+ mV T WAVE IN I/aVL/V5/V6] COMPARED TO ECG 12/21/2023 22:01:28 SIGNIFICANT WORSENING OF T-WAVE ABNORMALITY IN THE LATERAL LEADS NOW PRESENT Electronically Signed On 12-22-2023 15:41:38 [employer] by Patrica Lala M.D.
[2023-12-22 00:42] LABS: Partial Thromboplastin Time 183.3 SECONDS (22.3-36.8)
[2023-12-22 00:47] LABS: Basophils Percent Auto 0.5 % (0.2-1.2); Eosinophils Absolute Auto 0.2 K/mm3 (0-0.3); Eosinophils Percent Auto 2.3 % (0-4.4); Hematocrit 40.7 % (37.0-47.0); Hemoglobin 13.5 g/dL (12.0-15.0); Immature Granulocyte Absolute 0.04 K/mm3 (0.00-0.031); Immature Granulocyte Percent A 0.5 % (0-0.5); Lymphocytes Absolute Auto 2.39 K/mm3 (0.9-3.2); Mean Corpuscular HGB Conc 33.2 g/dl (32-36); Mean Corpuscular Hemoglobin 29.8 pg (26-34); Mean Corpuscular Volume 89.8 fl (80-100); Mean Platelet Volume 9.9 fl (7.4-10.4); Monocytes Absolute Auto 0.5 K/mm3 (0.1-0.6); Monocytes Percent Auto 6.6 % (2.6-8.5); Neutrophils Absolute Auto 4.6 K/mm3 (1.3-6.7); Neutrophils Percent Auto 59.1 % (45.5-73.1); Platelet Count Result 206 k/mm3 (150-375); Red Blood Count 4.53 M/mm3 (4.2-5.4); Red Cell Distribution Width 12.2 % (11.5-14.5); White Blood Count 7.7 K/mm3 (4.5-10.0)
--- NOTE | 2023-12-22 01:12 | ADMGEN ---
This patient, Azul Hopkins, was admitted to IMU Room 209-01. Patient/family oriented to hospital policies and general routines including ID bracelet, bed and alarms, visiting hours, pain management, procedures, bathroom and other care routines, personal items, smoking policy, room service/diet, and visiting hours. Information on how to activate the Rapid Response Team has been discussed. Patient/Family are encouraged to report perceived risks to care and to ask questions if they do not understand what they are told or what they should do.
[2023-12-22 01:15] LABS: Appearance Urine Clear (Clear); Bilirubin Urine Negative (Negative); Blood Urine Negative (Negative); Color Urine Yellow (Yellow); Glucose Urine UA Negative (Negative); Ketones Urine Negative (Negative); Leukocyte Esterase Ur Negative LEU/UL (Negative); Nitrate Urine Negative (Negative); Protein Urine Negative (Negative); Specific Grav Ur 1.014 (1.001-1.035); Urobilinogen Urine 0.2 mg/dL (<2.0); pH Urine 5.5 (5.0-9.0)
[2023-12-22 01:21] LABS: Add Urine Microscopic? NO
[2023-12-22 01:34] LABS: Amphetamine Screen Urine Negative (Negative); Barbiturate Screen Urine Negative (Negative); Benzodiazepines Screen Urine Negative (Negative); Cannabinoid Screen Urine Negative (Negative); Cocaine Screen Urine Negative (Negative); Methadone Screen Urine Negative (Negative); Opiate Screen Urine Negative (Negative); Phencyclidine Screen Urine Negative (Negative)
[2023-12-22] MEDS: ACETAMINOPHEN 325 MG TABLET 650 MG PO (01:51)
[2023-12-22 05:44] LABS: Partial Thromboplastin Time 39.2 SECONDS (22.3-36.8)
[2023-12-22] MEDS: HEPARIN SODIUM 5,000 UNITS/ML VIAL 4000 UNITS IV PUSH (06:05)
[2023-12-22] MEDS: LACTATED RINGERS 1,000 ML 125 ML IV CONT (08:39)
--- NOTE | 2023-12-22 09:43 | PM.CNCAR ---
Assessment and Plan Assessment and plan (1) Non-ST elevation NC (NSTEMI): Code(s): I21.4 - Non-ST elevation (NSTEMI) myocardial infarction Status: Acute Assessment and Plan: Initial troponin was negative at 0.017, however repeat at 0.896 followed by 3.33. Initial EKG with sinus rhythm with nonspecific T-wave abnormality. No prior EKGs in our system available for comparison. Second repeat EKG later without significant changes. Third EKG obtained overnight shows deep T-wave inversions in the lateral leads, which is new compared to her initial EKGs. Given her history of prior stress NC and negative cardiac cath in 2021, it could be stress cardiomyopathy again, however, cannot rule out an acute coronary syndrome. Therefore, recommend cardiac catheterization for definitive evaluation. Patient agreeable to cath. Will plan on cath today. Patient to remain NPO for cath. Loaded with ASA 12/21, continue ASA 81mg once daily. Continue Heparin drip for now. Echocardiogram ordered and pending. Further recommendations pending results of cardiac cath. (2) Hypertension: Code(s): I10 - Essential (primary) hypertension Status: Acute Assessment and Plan: Stable. Continue home Amlodipine, Coreg, Lisinopril. (3) Tobacco dependence: Code(s): F17.200 - Nicotine dependence, unspecified, uncomplicated Status: Acute Assessment and Plan: Counseled on smoking cessation. (4) Peripheral vascular disease: Code(s): I73.9 - Peripheral vascular disease, unspecified Status: Acute Assessment and Plan: Should be on ASA and statin. Will start ASA 81mg once daily, high-intensity statin. Counseled on smoking cessation. History of Present Illness History of Present Illness Consult date/time: 12/22/23 09:43 Requesting physician: Johnna Garcia MD Consult reason: Other (Chest pain, NSTEMI) Reason For Visit: NSTEMI Narrative: We are consulted for NSTEMI. This is a 43 year old female with hypertension, history of stress NC per the patient in February 2022, peripheral vascular disease s/p angioplasty/stents, tobacco dependence who presented with chest pain. Patient was driving when she developed left-sided chest pain with radiation to left arm that lasted for about an hour and a half. Came to [place] [facility] for further evaluation. Patient states in February 2022, she had severe chest pain (worse than this most recent episode) and she underwent cardiac catheterization at [facility] and was told that she did not have any blockages, but had a stress NC. Patient is now currently chest pain free. Initial troponin was negative at 0.017, however repeat at 0.896 followed by 3.33. CXR negative for acute findings. Initial EKG with sinus rhythm with nonspecific T-wave abnormality. No prior EKGs in our system available for comparison. Second repeat EKG later without significant changes. Third EKG obtained overnight shows deep T-wave inversions in the lateral leads, which is new compared to her initial EKGs. She has been started on Heparin drip. Review of Systems Review of Systems: All systems reviewed & are unremarkable except as noted in HPI and below (HPI) [facility] Past Medical History Medical History (Updated 12/22/23 @ 09:51 by Patrica Lala MD) Hypertension Myocardial infarction 02/2022 per pt; details unclear Raynauds disease Surgical History Surgical History History of cardiac catheterization 02/2022 per patient (Dr Barragan, [facility]), without blockage Peripheral vascular angioplasty status with implants and grafts angioplasty in L leg x2 in early 2021 per patient with stent(s) Family History Family History Grandparent , at age 62 Acute myocardial infarction, Onset Age: 62 Diabetes mellitus Hypertension Mother Hypertension Sibling Hypertension Social Hi
[2023-12-22 10:20] LABS: Cholesterol 198 mg/dL (0-200); HDL Direct 42 mg/dL; Triglycerides 129 mg/dL (<150)
[2023-12-22 10:31] LABS: LDL Cholesterol Direct 127 mg/dL
[2023-12-22 11:01] LABS: Hemoglobin A1C 5.4 % (<5.7)
--- NOTE | 2023-12-22 11:03 | WPDMODSED ---
Moderate Sedation Note-Pt Data Patient Data Diagnosis: NSTEMI Present Complaint: NSTEMI Procedure to be performed/Plan: Coronary angiography, left heart cath, +/- PCI Allergies Allergy/AdvReac Type Severity Reaction Status Date / Time hydrocodone AdvReac Mild Nausea and Verified 09/12/18 12:35 Vomiting propoxyphene AdvReac Mild Nausea and Verified 09/12/18 12:35 Vomiting Home Medications Medication Instructions Recorded Confirmed Type amlodipine 10 mg tablet 10 mg PO DAILY 12/22/23 12/22/23 History aspirin 81 mg chewable tablet 81 mg PO DAILY 12/22/23 12/22/23 History carvedilol 25 mg tablet 25 mg PO BID 12/22/23 12/22/23 History citalopram 40 mg tablet 40 mg PO DAILY 12/22/23 12/22/23 History lisinopril 20 mg tablet 20 mg PO DAILY 12/22/23 12/22/23 History norethindrone acetate 1 mg-ethinyl 1 tablet PO DAILY 12/22/23 12/22/23 History estradiol 20 mcg tablet Current Medications: Active Medications Acetaminophen (Acetaminophen 325 Mg Tablet) 650 mg PO Q4H PRN PRN Reason: Mild Pain (1-3) or Fever Last Admin: 12/22/23 01:51 Dose: 650 mg Amlodipine Besylate (Amlodipine Besylate 5 Mg Tablet) 10 mg PO DAILY [facility] Aspirin (Aspirin 81 Mg Enteric Tablet) 81 mg PO QAM [facility] Atorvastatin Calcium (Atorvastatin 40 Mg Tablet) 80 mg PO DAILY [facility] Carvedilol (Carvedilol 25 Mg Tablet) 25 mg PO Q12HR [facility] Citalopram Hydrobromide (Citalopram Hydrobromide 20 Mg Tablet) 40 mg PO DAILY [facility] Heparin Sodium (Porcine) (Heparin Sodium 5,000 Units/Ml Vial) 4,000 units IV PUSH PRN PRN PRN Reason: aPTT less than 55 seconds Last Admin: 12/22/23 06:05 Dose: 4,000 units Heparin Sodium (Porcine) (Heparin Sodium 5,000 Units/Ml Vial) 2,500 units IV PUSH PRN PRN PRN Reason: aPTT 55 - 70 seconds Heparin Sodium/Dextrose (Heparin Sodium/D5w 100 Units/Ml) 25,000 units in 250 mls @ 9 mls/hr IV CONT .Q24H [facility]; Protocol Last Titration: 12/22/23 05:58 Dose: 900 units/hr, 9 mls/hr Lactated Ringer's (Lr - Lactated Ringers Iv) 1,000 mls @ 125 mls/hr IV CONT .Q8H [facility] Last Admin: 12/22/23 08:39 Dose: 125 mls/hr Lisinopril (Lisinopril 20 Mg Tablet) 20 mg PO DAILY [facility] Ondansetron HCl (Ondansetron Inj 4 Mg/2 Ml Vial) 4 mg IV PUSH Q4H PRN PRN Reason: Nausea Perflutren Lipid Microsphere (Perflutren Lipid Microspheres 1.5 Ml Vial Diluted To 10 Ml Total Volume) 0 ml IV PUSH ONCE PRN; Protocol PRN Reason: adequate visualization Stop: 12/25/23 09:49 Sedation/Anesthesia: No previous sedation/anesthesia problems (including family history). [facility] Past Medical History Medical History Hypertension Myocardial infarction 02/2022 per pt; details unclear Raynauds disease Surgical History Surgical History History of cardiac catheterization 02/2022 per patient (Dr Barragan, [facility]), without blockage Peripheral vascular angioplasty status with implants and grafts angioplasty in L leg x2 in early 2021 per patient with stent(s) Family History Family History Grandparent , at age 62 Acute myocardial infarction, Onset Age: 62 Diabetes mellitus Hypertension Mother Hypertension Sibling Hypertension Social History Social History Smoking packs per day: 0.2 Smoking cigarettes per day: 4.0 Years smoked: 20 Smoking pack-years: 4.00 Smoking status: Current every day smoker Tobacco type: cigarettes Alcohol intake: current Drinks per week: 1 Substance use: never Do You Feel Safe in your Home?: Yes Lack of Transportation: No Lack of Food: Never True Current Housing: I Have Housing Concerned About Future Housing: No Difficulty Paying Gas/Electric Bills: YES Difficulty Paying for Meds: YES Currently Unemployed: No Education: High School Diploma/GED Difficulty w/ Childc
--- NOTE | 2023-12-22 11:04 | WPDCARDPROC ---
Cardiac Cath Procedure Note Date of procedure:: 12/22/23 Performing physician:: CATHETERIZATION LABORATORY REPORT Procedure Date: 12/22/2023 Control Room Tender: Patrica Lala M.D., [facility]? Referring Physician: Patrica Lala M.D. ? Anesthesia: Versed and Fentanyl were ordered and given in my presence at 11:10, procedure ended at 11:31. Supervision of nurse monitored moderate sedation with Versed and Fentanyl was provided for 21 minutes. Total of Versed 1mg and Fentanyl 50mcg were administered by the Peer Specialist RN Gial Linares. Pre-op Diagnosis: NSTEMI Post-op Diagnosis: No obstructive coronary arteries, angiographically normal coronary arteries Procedure(s): 1. Moderate sedation 2. Ultrasound-guided access of the right radial artery 3. Coronary angiography Access Site: Right radial artery Brief History and Clinical Indications: Patient is a 43 year old female who is referred for [facility] for NSTEMI. All risks, benefits and alternatives to left heart catheterization with or without percutaneous coronary intervention was discussed at length with the patient. Risk of complications including but not limited to bleeding, infection, arrhythmia, stroke, worsening kidney function, blood loss, groin hematoma, limb loss, emergency coronary artery bypass grafting, and even were discussed with the patient and all questions were answered. The patient understood and wished to proceed. Time out called, patient name, date of , medical record number, allergies, procedure performed, identify Control Room Tender, patient and staff member concurred with accurate data, procedure carried on. Findings: LEFT HEART CATHETERIZATION FINDINGS: 1. Left main: The left main coronary artery is widely patent without any significant obstructive disease. 2. Left anterior descending: The LAD and the diagonal branches have mild luminal irregularities without any significant obstructive angiographic disease. 3. Left circumflex: The left circumflex artery and the main marginal branches have mild luminal irregularities without any significant obstructive angiographic disease. The left circumflex artery is co-dominant. 4. Right coronary artery: The RCA has mild luminal irregularities without any significant obstructive angiographic disease. The RCA is a co-dominant vessel. Description of Procedure: Informed consent signed and placed in the chart. Patient transferred to dental laboratory manager room. Prepped and draped in usual sterile fashion. 2% lidocaine injected subcutaneously in right wrist area. 22-gauge venipuncture catheter used to access the right radial artery under ultrasound guidance. 6-FR slender sheath placed in right radial artery. Nitroglycerine and Verapamil were given intraarterial through the sheath. Versacore wire advanced under fluoroscopy 5F Tig 4 diagnostic catheter engaged Left Main Coronary Artery. 5F Tig 4 diagnostic catheter engaged Right Coronary Artery Multiple orthogonal angiogram obtained and reviewed Attempted to cross aortic valve to obtain LVEDP with 5F Pigtail catheter, but unable to cross from right radial access. Hemostasis was achieved by application of TR band. Post Operative Condition: Stable No significant blood loss Disposition: Floor Plan: The patient will be monitored in the recovery area. Continue aggressive medical therapy and risk factor modification. ? Patrica Lala M.D. Interventional Cardiology
--- NOTE | 2023-12-22 11:19 | PC.NURSE ---
1045- to liaison inspection laboratory assistant via bed accompanied by CAMACHO
--- NOTE | 2023-12-22 12:18 | PM.SD2 ---
Same Day Admit/Disch: HPI History of Present Illness Chief complaint: NSTEMI Narrative: Azul Hopkins is a 43 year old female with PMH of hypertension, stress RI in February 2022 with cardiac cath, peripheral vascular disease s/p angioplasty/stents, tobacco dependence who presented with chest pain. She was supposed to follow up outpatient with cardiology, but admittedly never has. Patient states in February 2022, she had severe chest pain (worse than this most recent episode) and she underwent cardiac catheterization at [facility] and was told that she did not have any blockages, but had a stress RI. Prior to this episode, she reported having a migraine. No other notable activity changes, exercise, dietary changes. She has heart burn occasionally, but has not been diagnosed officially with GERD. She described the pain from this episode as a squeezing pain. Denies history of stroke, changes to her medications. Denies recent viral symptoms or illness. [facility] Past Medical History Medical History Hypertension Myocardial infarction 02/2022 per pt; details unclear Raynauds disease Surgical History Surgical History History of cardiac catheterization 02/2022 per patient (Dr Barragan, [facility]), without blockage Peripheral vascular angioplasty status with implants and grafts angioplasty in L leg x2 in early 2021 per patient with stent(s) Family History Family History Grandparent , at age 62 Acute myocardial infarction, Onset Age: 62 Diabetes mellitus Hypertension Mother Hypertension Sibling Hypertension Social History Social History Smoking packs per day: 0.2 Smoking cigarettes per day: 4.0 Years smoked: 20 Smoking pack-years: 4.00 Smoking status: Current every day smoker Tobacco type: cigarettes Alcohol intake: current Drinks per week: 1 Substance use: never Do You Feel Safe in your Home?: Yes Lack of Transportation: No Lack of Food: Never True Current Housing: I Have Housing Concerned About Future Housing: No Difficulty Paying Gas/Electric Bills: YES Difficulty Paying for Meds: YES Currently Unemployed: No Education: High School Diploma/GED Difficulty w/ Childcare or Family Care: No Living arrangements: with family Additional living arrangements comments: 5yo son Spiritual care concerns: No Same Day Admit/Disch: Med Pre-admit Medications Home Medications Medication Instructions Recorded Confirmed Type amlodipine 10 mg tablet 10 mg PO DAILY 12/22/23 12/22/23 History aspirin 81 mg chewable tablet 81 mg PO DAILY 12/22/23 12/22/23 History carvedilol 25 mg tablet 25 mg PO BID 12/22/23 12/22/23 History citalopram 40 mg tablet 40 mg PO DAILY 12/22/23 12/22/23 History lisinopril 20 mg tablet 20 mg PO DAILY 12/22/23 12/22/23 History norethindrone acetate 1 mg-ethinyl 1 tablet PO DAILY 12/22/23 12/22/23 History estradiol 20 mcg tablet Review of Systems Review of Systems All systems reviewed & are unremarkable except as noted in HPI and below Exam Narrative: GENERAL: Well-appearing, well-nourished, and in no acute distress. HEAD: Normocephalic, atraumatic. EYES: EOMI, PERRLA NECK: Supple. CHEST: Clear to auscultation. No respiratory distress. HEART: RRR, no murmurs. ABDOMEN: Soft, nondistended. Present BS. EXTREMITIES: Normal range of motion. No lower extremity edema. SKIN: Warm, dry, no rash. NEURO: No focal deficits. Alert and oriented x3. PSYCH: Normal mood and affect. DS: Data Data Completed and Pending Labs on day of discharge: Labs from last 24 hours 12/22/23 12/22/23 12/22/23 04:48 04:44 01:04 WBC RBC Hgb Hct MCV MCH MCHC RDW Plt Count MPV Immature Gran % (Aut
[2023-12-22] MEDS: ATORVASTATIN 40 MG TABLET 80 MG PO (15:11)
[2023-12-22] MEDS: amLODIPine BESYLATE 5 MG TABLET 10 MG PO (15:11)
[2023-12-22] MEDS: ASPIRIN 81 MG ENTERIC TABLET PO (15:12)
[2023-12-22] MEDS: CITALOPRAM HYDROBROMIDE 20 MG TABLET 40 MG PO (15:12)
[2023-12-22] MEDS: lisinopriL 20 MG TABLET PO (15:14)
[2023-12-22] MEDS: SODIUM CHLORIDE 0.9% IV 1,000 ML 125 ML IV CONT (15:14)
--- NOTE | 2023-12-22 17:53 | PC.NURSE ---
discharge home as ordered- via w/c accompanied by staff to private vehicle driven by friend; discussed discharge instructions/activity/new medications- and port r radial cath activity/ wound care ; moderate sedation activity, and to stop smoking- pt acknowledged understanding of instructions, right radial site -dressing CDI, +2 pulse; no hematoma- armboard in place
== END 2023-12-22 17:53 | disposition home or self-care (01) | DRG 287 ==
LOC: ANHED 23:47 → ANHIMU 12-22 00:10
PROVIDERS: Emergency Medicine; Internal Medicine; Admitting Provider Internal Medicine; Emergency Provider Student in an Organized Health Care Education/Training Program; PCP Family Medicine; Visit Provider Nurse Practitioner
PROC: 4A023N7 Measurement of Cardiac Sampling and Pressure, Left Heart, Percutaneous Approach (ICD-10-PCS; CPT 93454; principal; 2023-12-22 13:00)
DX: R07.89 Other chest pain (principal); I51.81 Takotsubo syndrome; I10 Essential (primary) hypertension; I73.9 Peripheral vascular disease, unspecified; F17.290 Nicotine dependence, other tobacco product, uncomplicated; F17.210 Nicotine dependence, cigarettes, uncomplicated; I25.2 Old myocardial infarction; Z95.820 Peripheral vascular angioplasty status with implants and grafts
CPT/HCPCS: 36415; 71046; 80053; 80061; 80307; 81003; 83036; 83690; 84443; 84484; 85025; 85610; 85730; 93005; 93306; 93454; 96365; 96366; 99285; A9270; C1769; C1887; G0378; J1644; J2250; J2305; J3010; J7030; J7120